=== PATIENT | female | born 1955 | race Caucasian/White ===

== ENCOUNTER 2020-02-17 16:50 | Outpatient (REF) | payer MEDICARE, SELFPAY | END 2020-02-17 16:51 | disposition home or self-care (01) | LOC: HO.LAB 16:50 | PROVIDERS: Visit Provider Internal Medicine | DX: Z20.828 Contact with and (suspected) exposure to other viral communicable diseases (principal) | CPT/HCPCS: C9803; U0003 ==

== ENCOUNTER 2022-11-16 12:08 | Emergency (ER) | payer MEDICARE, OTHER, SELFPAY ==
--- NOTE | ~2022-11-16 | CT_ITS ---
EXAMINATION: CT ABDOMEN AND PELVIS WITHOUT CONTRAST CLINICAL INFORMATION: Reason for Exam lower ABD pain, hematuria, dysuria, flank pain COMPARISON: None available. TECHNIQUE: Multidetector volumetric imaging was performed from the superior aspect of the liver through the pubic symphysis. Sagittal and coronal reformatted images were obtained on the technologist's workstation. This CT examination was performed using dose optimization techniques as appropriate, variously including the following: *Automated exposure control *Adjustment of mA and/or kV according to patient size (this includes techniques or standardized protocols for targeted exams where dose is matched to indication/reason for exam; i.e. extremities or head) *Use of iterative reconstruction technique DLP: 534 mGy-cm FINDINGS: LUNG BASES: The visualized lung bases are unremarkable. LIVER, GALLBLADDER, AND BILIARY TREE: The liver is normal in size, shape, and attenuation. No focal hepatic lesion or biliary ductal dilatation is present. Mild gallstones in the gallbladder PANCREAS: Unremarkable. SPLEEN: Unremarkable. ADRENAL GLANDS: Unremarkable. KIDNEYS AND URETERS: Bilateral hydronephrosis and down to the bladder, left greater than right. No stone. BLADDER: Bladder is well-distended. GASTROINTESTINAL TRACT: Diverticulosis of the colon. No evidence of diverticulitis. The small and large bowel are otherwise unremarkable. The appendix is unremarkable. ABDOMINAL WALL: Small fat. LYMPH NODES: Normal. VASCULAR: Unremarkable. PELVIC VISCERA: Unremarkable. OSSEOUS STRUCTURES: Scoliosis and degenerative change. Increased sclerosis in the left-sided pubic symphysis questionable for a sclerotic bone lesion as opposed to pubic symphysitis. This measures [address]/CT abdomen pelvis wo IV con IMPRESSION: Bilateral hydronephrosis and ureteral dilatation down to the bladder, left greater than right. The bladder is well-distended. No stone seen. Diverticulosis. Contracted gallbladder with gallstones. Nonspecific sclerotic lesion in the left pubic symphysis. Fleischner guidelines were followed.
[2022-11-16 12:48] VITALS: BP 134/61; PULSE 94; RESP 18; TEMP 36.2; O2SAT 98; BMI 25.6
--- NOTE | 2022-11-16 12:48 | ED.FEMALEGU ---
HPI - Female Genitourinary General Chief complaint: Abdominal Pain Stated complaint: Vag Bleed Time Seen by Provider: 11/16/22 16:34 Source: patient Mode of arrival: ambulatory Limitations: no limitations History of Present Illness HPI Narrative: Patient is a 59-year-old female who presents emergency department for evaluation of lower abdominal pain, lower back pain and hematuria with symptom onset this morning. Pain is constant with varying intensity. Denies any history of similar pain in the past. Initially there was some concern as to whether this was hematuria versus vaginal bleeding. She is adamant at this time that she is not experiencing vaginal bleeding. She states that the blood is only present after she urinates and is wiping. She denies any breakthrough bleeding or saturation of her clothing with blood. Her last menstrual period was approximately 20 years ago. She is also endorsing dysuria. She denies fevers, chills, nausea, vomiting, chest pain, shortness of breath, diarrhea, constipation, hematochezia, melena. She denies the use of anticoagulants or coagulation disorders. Related Data Previous Rx's Medication Instructions Recorded cefuroxime axetil 500 mg tablet 500 mg PO BID #10 tabs 11/16/22 Allergies Allergy/AdvReac Type Severity Reaction Status Date / Time No Known Allergies Allergy Verified 11/16/22 12:53 Review of Systems Review of Systems: Yes all other systems are reviewed and are negative PMFSH Past Medical History Attestation statement: The following information was validated with the patient. Source: old records reviewed Social History Social History Alcohol intake: never Smoked in Last 30 Days: Yes Use of substances other than those prescribed or required for medical reasons: No Advance Directives: No Advance Directives Information Provided: Yes Physical Exam Vital Signs: Vital Signs: Last Vital Signs Temp 98.2 F 11/16/22 21:42 Pulse 85 11/16/22 21:42 Resp 16 11/16/22 21:42 BP 122/54 L 11/16/22 21:42 Pulse Ox 98 11/16/22 21:42 O2 Del Method Room Air 11/16/22 21:42 BMI result Body Mass Index 25.6 Appearance: Alert.?Oriented to person, place and time. No acute distress.?Normal affect. Neck: Normal inspection.? Neck supple.?? CVS: Heart sounds normal. Normal heart rate and rhythm.? Pulses normal.?? Respiratory: No respiratory distress.? Lung sounds clear to auscultation bilaterally?? Abdomen: Soft with diffuse mild lower abdominal tenderness upon palpation. No rigidity. No guarding. No rebound tenderness. Bilateral CVA tenderness.. Normoactive bowel sounds. No pulsatile mass.?? Skin: Skin warm and dry.? Normal skin color.? Extremities: No lower extremity edema.? Neuro: Moves all extremities spontaneously. Sensation intact bilaterally. Ambulates with normal steady gait. Course Course Course Narrative: RME: 67yo F w/PMHx sleep apnea c/o lower abdominal pain, nausea, dysuria, hematuria and ?vaginal bleeding w/o clots x this morning. patient admits when she wipes and urinates there is blood, shes unsure if its vaginal or coming from her urine. abdomen soft w/lower abdominal ttp, no CVAT Labs, UA ordered Full HPI, ROS and PE to be performed by primary ED provider. Reevaluation(s) Reevaluation #1: CT of the abdomen and pelvis revealing a bilateral hydronephrosis in ureteral dilation down to the bladder left greater than the right with out evidence of calculi for pyelonephritis, there is diverticulosis but no diverticulitis. I reviewed these findings with patient. She does have notable hematuria, which she endorses as jose d hematuria, at this time without evidence of calculi concerns for additional etiology for bleeding such as vaginal/rectal. I reviewed my concerns with patient and she now agrees to genital examination. Rectal examination is benign, no hemorrhoids or fissures. Pelvic examination reveals no evidence of trauma or abnormality to the vaginal song, cervical os is closed and there is no active bleeding, she appears to have a cystocele without any active bleeding from the urethra. Discussed this case with ED attending; Dr. Delaney, will repeat urinalysis with straight catheterization to the [facility] bleeding is urinary in nature. Time: 19:00 Reevaluation #2: Straight catheterization urinalysis revealing persistent hematuria. I reviewed these findings with patient. She resides in [facility]. We discussed plan of care for treatment of urinary tract infection, she received Rocephin in the emergency department, prescription for cefuroxime was sent to a local pharmacy. She is going to contact her primary care provider at home and obtain a follow-up appointment and referral for evaluation with Urology, she is traveling back home next week. We discussed worrisome signs and symptoms that would warrant re-evaluation in the emergency department. All questions were answered. Stable for discharge. Time: 20:34 Medications Administered Discontinued Medications Generic Name Dose Route Start Last Admin Trade Name Clarissa PRN Reason Stop Dose Admin Ceftriaxone Sodium 1 gm/ 50 mls @ 100 mls/hr 11/16/22 16:36 11/16/22 17:28 Sodium Chloride IV 11/16/22 17:05 Infused ONCE ONE Infusion Sodium Chloride 1,000 mls @ 999 mls/hr 11/16/22 17:00 11/16/22 17:59 Ns IV 11/16/22 18:00 Infused .Q1H1M ROSA ELENA Infusion Medical Decision Making Medical Decision Making [facility] Narrative: 1636 : First contact with patient. Patient is a 67-year-old female with past medical history of hyperlipidemia, depression, GERD presenting to emergency department for evaluation of abdominal pain and hematuria. Reviewed serum labs obtained from initial workup leukocytosis of 17.2 with left shift, presented with mild tachycardia with heart rate of 94 thus meeting SIRS criteria. Blood cultures and lactic acid have been ordered. CMP is unremarkable, no COY. Urinalysis with hematuria and concern for urinary tract infection. Ordered Rocephin 1 g IV in addition to normal saline 1 L IV. Abdominal examination is notable for diffuse lower abdominal tenderness without rigidity guarding or rebound tenderness, and bilateral CVA tenderness. Plan to obtain CT of the abdomen and pelvis for further evaluation; pyelonephritis, renal colic, ureteral calculi, obstructive calculi, hydronephrosis. Less likely to be appendicitis, diverticulitis, colitis, bowel obstruction. Declines bleeding to the vaginal in nature, and declines genital examination for further evaluation. Endorses that the pain is only present after urinating while in the bathroom. Differential Diagnosis Differential Diagnoses: The differential diagnosis associated with the presentation includes (See narrative above for further detail) Admission/Observation Consideration of admission/observation: Escalation of care including admission/observation considered (I considered admission for abdominal pain and hematuria, see course narrative for further detail) Lab Data [facility] Lab Attestation statement: I reviewed the patient's lab results. (See course narrative for further detail) 11/16/22 14:17 11/16/22 14:17 Labs: Lab Results 11/16/22 11/16/22 11/16/22 Range/Units 14:17 16:54 19:53 WBC 17.2 H (4.8-10.8) X10*3/uL RBC 4.70 (4.20-5.50) X10*6/uL Hgb 13.8 (12.0-16.0) g/dl Hct 41.5 (37.0-47.0) % MCV 88.3 (80.0-98.0) fL MCH 29.4 (27.0-33.0) pg MCHC 33.3 (31.0-35.0) g/dl RDW 13.7 (11.0-16.0) % Plt Count 318 (160-400) X10*3/uL MPV 10.8 (9.4-12.3) fL Immature Gran % (Auto) 0.5 H (0.0-0.4) % Neut % (Auto) 83.3 H (45-73) % Lymph % (Auto) 10.5 L (20-40) % [place] % (Auto) 4.6 (2-11) % Eos % (Auto) 0.8 (0-4) % Baso % (Auto) 0.3 (0-2) % Lymph # (Auto) 1.8 (1.2-4.9) X10*3/uL [place] # (Auto) 0.8 (0.1-1.2) X10*3/uL Eos # (Auto) 0.1 (0.0-0.4) X10*3/uL Baso # (Auto) 0.1 (0.0-0.2) X10*3/uL Abs Immat Gran (auto) 0.08 H (0.00-0.03) X10*3/uL Absolute Neuts (auto) 14.4 H (2.0-8.3) x10*3/uL Absolute Nucleated RBC 0.000 (0.0-0.012) X10*3/uL Nucleated RBC % (auto) 0.0 (0.0-0.2) /100WBC PT 12.8 (11.1-13.3) SEC INR 1.1 (0.9-1.1) Sodium 141 (135-145) mmol/L Potassium 3.9 (3.3-5.1) mmol/L Chloride 105 (96-108) mmol/L Carbon Dioxide 27 (22-29) mmol/L Anion Gap 13 (12-20) BUN 14 (9-16) mg/dL Creatinine 0.76 (0.5-1.4) mg/dL Estim Creat Clear Calc 66.9 Estimated GFR > 60 Random Glucose 90 (60-115) mg/dL Lactic Acid 0.6 (0.5-2.0) mmol/L Calcium 10.1 (8.4-10.2) mg/dL Magnesium 2.3 (1.6-2.6) mg/dL Total Bilirubin 0.4 (0.0-1.0) mg/dL Direct Bilirubin 0.1 (0.0-0.5) mg/dL AST 18 (5-31) U/L ALT 20 (0-31) U/L Alkaline Phosphatase 104 (39-117) U/L Total Protein 7.8 (6.5-8.0) g/dL Albumin 4.6 (3.5-5.0) g/dL Lipase 28 (8-78) U/L Urine Color Other A Yellow Urine Appearance Turbid Clear Urine pH 8.5 7.5 (5.0-9.0) Ur Specific [place] 1.020 1.010 (1.005-1.025) Urine Protein 100 (2+) H Negative (Neg-Trace) mg/dL Urine Glucose (UA) Negative Negative (Negative) mg/dL Urine Ketones Negative Negative (Negative) mg/dL Urine Blood Large (3+) H Moderate (2+) H (Negative) Urine Nitrite Negative Negative (Negative) Ur Leukocyte Esterase Moderate (2+) H Large (3+) H (Negative) Urine RBC >20 H >20 H (0-2) /HPF Urine WBC >50 21-50 H (0-5) /HPF Urine WBC Clumps Present Ur Squamous Epith Cells 0-2 0-2 (0-2) /HPF Urine Bacteria 1+ None Seen (None Seen) Hyaline Casts 0-2 0-2 (0-2) /LPF Radiology Impression Discussion of test interpretation with radiology: I have reviewed the radiologist's reading. Radiologist Impression: CT/CT abdomen pelvis wo IV con IMPRESSION: Bilateral hydronephrosis and ureteral dilatation down to the bladder, left greater than right. The bladder is well-distended. No stone seen. Diverticulosis. Contracted gallbladder with gallstones. Nonspecific sclerotic lesion in the left pubic symphysis. Independent Historian Clinical information obtained from an independent historian. History obtained from or confirmed by: Friend (Present at bedside who confirms history) Prescription Management I considered prescription management with: Antibiotic Discharge Plan Discharge Clinical Impression: Urinary tract infection, Hematuria, Hydronephrosis Patient Disposition: Home, Self-Care Instructions: Urinary Tract Infection in Women (DC), Hydronephrosis (ED) Additional Instructions: As discussed, it appears as though you have a urinary tract infection for which we are treating with a course of antibiotics. Please slate picker the antibiotics from a your pharmacy and begin taking tomorrow as you received the initial dose in the emergency department today. Your vaginal examination did not reveal any evidence of bleeding. Your initial urinary sample as well as catheterized urinary sample reveals significant hematuria. The CT scan of your abdomen did not show any evidence of a kidney stone, there is however hydronephrosis and ureteral dilation (swelling of the kidneys usually due to urine buildup). Upon examination it does. Sodium have a cystocele, bladder prolapse which may be attributing to this as well. It is important that you follow-up with your primary care provider (please call their office 1st thing tomorrow morning), and discuss re-evaluation of your urinalysis, and evaluation with Urology for further treatment when you get back home to [place]. You may return back to emergency department any new or worsening symptoms or concerns. Prescriptions: New cefuroxime axetil 500 mg tablet 500 mg PO BID Qty: 10 0RF Interventions: ED Discharge Assessment Last Done: 11/16/22 22:15 Discharge Date/Time: 11/16/22 22:16
[2022-11-16 14:24] LABS: MANUAL DIFF FLAG NO
[2022-11-16 14:27] LABS: Basophils Absolute Auto 0.1 X10*3/uL (0.0-0.2); Basophils Percent Auto 0.3 % (0-2); Eosinophils Absolute Auto 0.1 X10*3/uL (0.0-0.4); Eosinophils Percent Auto 0.8 % (0-4); Hematocrit 41.5 % (37.0-47.0); Hemoglobin 13.8 g/dl (12.0-16.0); Imm Gran Abs Auto 0.08 X10*3/uL (0.00-0.03); Imm Gran Pct Auto 0.5 % (0.0-0.4); Lymphocytes Absolute Auto 1.8 X10*3/uL (1.2-4.9); Lymphocytes Percent Auto 10.5 % (20-40); Mean Corpuscular HGB Conc 33.3 g/dl (31.0-35.0); Mean Corpuscular Hemoglobin 29.4 pg (27.0-33.0); Mean Corpuscular Volume 88.3 fL (80.0-98.0); Mean Platelet Volume 10.8 fL (9.4-12.3); Monocytes Absolute Auto 0.8 X10*3/uL (0.1-1.2); Monocytes Percent Auto 4.6 % (2-11); Neutrophils Absolute Auto 14.4 x10*3/uL (2.0-8.3); Neutrophils Percent Auto 83.3 % (45-73); Platelet Count 318 X10*3/uL (160-400); Red Cell Distribution Width 13.7 % (11.0-16.0); White Blood Count 17.2 X10*3/uL (4.8-10.8)
[2022-11-16 14:34] LABS: INTERNATIONAL NORM RATIO 1.1 (0.9-1.1); Prothrombin Time 12.8 SEC (11.1-13.3)
[2022-11-16 14:39] LABS: Appearance Urine Turbid; Glucose Urine UA Negative (Negative); Leukocyte Esterase Urine Moderate (2+) (Negative); Nitrite Urine Negative (Negative); PH 8.5 (5.0-9.0); UMIC TRIGGER UACC YES; Urine Blood Large (3+) (Negative); Urine Ketones Negative (Negative); Urine Protein 100 (2+) mg/dL (Neg-Trace)
[2022-11-16 14:40] LABS: Color Urine Other
[2022-11-16 14:44] LABS: UACC Culture Trigger YES; WBC Urine >50 /HPF (0-5)
[2022-11-16 14:45] LABS: Bacteria Urine 1+ (None Seen); Hyaline Casts Urine 0-2 /LPF (0-2); RBC Urine >20 /HPF (0-2); Squamous Epithelial Cell Urine 0-2 /HPF (0-2); WBC Clumps Urine Present
[2022-11-16 14:47] LABS: Alanine Aminotransferase 20 U/L (0-31); Albumin Level 4.6 g/dL (3.5-5.0); Alkaline Phosphatase 104 U/L (39-117); Anion Gap 13 (12-20); Aspartate Amino Transferase 18 U/L (5-31); Bilirubin Direct 0.1 mg/dL (0.0-0.5); Bilirubin Total 0.4 mg/dL (0.0-1.0); Blood Urea Nitrogen 14 mg/dL (9-16); Calcium 10.1 mg/dL (8.4-10.2); Carbon Dioxide 27 mmol/L (22-29); Chloride 105 mmol/L (96-108); Creatinine Clr Calc Pharmacy 66.9; Estimated Glomerular Filt Rate > 60; Glucose Random 90 mg/dL (60-115); Lipase 28 U/L (8-78); Magnesium 2.3 mg/dL (1.6-2.6); Potassium 3.9 mmol/L (3.3-5.1); Sodium 141 mmol/L (135-145); Total Protein 7.8 g/dL (6.5-8.0)
[2022-11-16 15:57] VITALS: BP 127/59; PULSE 89; RESP 16; TEMP 37; O2SAT 99
--- NOTE | 2022-11-16 16:30 | PC.NURSE ---
Pt A/O X4, c/o 10 lower abd and lower back pain, pain increases with urination since AM. Pt States urine is brown in color with clots . IV started and first set of blood cultures drawn. VSS.
[2022-11-16 16:55] VITALS: BP 112/51; PULSE 78; RESP 16; TEMP 37; O2SAT 97
[2022-11-16] MEDS: cefTRIAXone sodium 1 GM in 0.9 % Sodium Chloride 50 ML IV (16:58)
[2022-11-16] MEDS: 0.9 % Sodium Chloride 1,000 ML 999 ML IV (16:58)
--- NOTE | 2022-11-16 17:00 | PC.NURSE ---
antibiotics/ivf hung per order
[2022-11-16 17:10] LABS: Lactic Acid 0.6 mmol/L (0.5-2.0)
[2022-11-16 18:00] VITALS: BP 107/50; PULSE 73; RESP 16; TEMP 36.8; O2SAT 98
--- NOTE | 2022-11-16 19:34 | PC.NURSE ---
Assumed care of pt. Pt lying on stretcher, respirations even and unlabored. Preparing for straight catheterization per provider.
[2022-11-16 20:03] LABS: Appearance Urine Clear; Color Urine Yellow; Glucose Urine UA Negative (Negative); Leukocyte Esterase Urine Large (3+) (Negative); Nitrite Urine Negative (Negative); PH 7.5 (5.0-9.0); UMIC TRIGGER UACC YES; Urine Blood Moderate (2+) (Negative); Urine Ketones Negative (Negative); Urine Protein Negative (Neg-Trace)
[2022-11-16 20:08] LABS: Bacteria Urine None Seen (None Seen); Hyaline Casts Urine 0-2 /LPF (0-2); RBC Urine >20 /HPF (0-2); Squamous Epithelial Cell Urine 0-2 /HPF (0-2); UACC Culture Trigger YES; WBC Urine 21-50 /HPF (0-5)
[2022-11-16 20:25] VITALS: BP 114/53; PULSE 82; RESP 16; TEMP 36.9; O2SAT 98
[2022-11-16 21:42] VITALS: BP 122/54; PULSE 85; RESP 16; TEMP 36.8; O2SAT 98
== END 2022-11-16 22:16 | disposition home or self-care (01) ==
PROVIDERS: Nurse Practitioner Family; Physician Assistant; Emergency Provider Emergency Medicine
DX: N39.0 Urinary tract infection, site not specified (principal); R31.9 Hematuria, unspecified; N13.30 Unspecified hydronephrosis; R30.0 Dysuria; N93.9 Abnormal uterine and vaginal bleeding, unspecified; R10.2 Pelvic and perineal pain; Z79.899 Other long term (current) drug therapy
CPT/HCPCS: 36415; 74176; 80048; 80076; 81001; 81003; 83605; 83690; 83735; 85025; 85610; 87040; 87086; 87088; 87186; 96361; 96365; 99284; 99285; J0696